=== PATIENT | female | born 1995 | race African-American/Black ===

== ENCOUNTER 2017-04-15 17:45 | Emergency (ER) | payer SELFPAY ==
[~2017-04-15] VITALS: Ht 152.4 cm; Wt 50.0 kg
[2017-04-15] MEDS ORDERED: ACETAMINOPHEN 500MG TABLET PO ONE (21:30)
[2017-04-15] MEDS ORDERED: ONDANSETRON 4MG ODT PO ONE (21:30)
[2017-04-15] MEDS ORDERED: BACITRACIN ZINC OINT UDPKT TOP NR (23:15)
[2017-04-15 23:29] VITALS: BP 114/75
== END 2017-04-15 23:32 | disposition home or self-care (01) ==
LOC: ER 17:59
DX: S09.90XA Unspecified injury of head, initial encounter (principal); F17.210 Nicotine dependence, cigarettes, uncomplicated; F12.10 Cannabis abuse, uncomplicated; Y04.0XXA Assault by unarmed brawl or fight, initial encounter; Y93.89 Activity, other specified; Y92.89 Other specified places as the place of occurrence of the external cause
CPT/HCPCS: 70450; 81025; 99284; Q0162